=== PATIENT | female | born 1945 | race Caucasian/White ===

== ENCOUNTER 2022-02-07 12:46 | Outpatient (CLI) | payer MEDICAID ==
--- NOTE | 2022-02-07 15:42 | XRay Report ---
CHEST 2 VIEWS INDICATION: Shortness of breath. COMPARISON: None. FINDINGS: Support devices: None. Heart: Within normal limits. Lungs/Pleura: Mild patchy opacity at the mid zones right greater than left and left base. Eventration right hemidiaphragm. No significant pleural effusion. IMPRESSION: Suspect mild bilateral pneumonia with possible underlying scarring. Recommend follow-up to clearing. Signer Name: Genaro Eduardo MD Signed: 02/07/2022 3:38 PM Workstation Name: [email or web address]
--- NOTE | 2022-02-08 11:01 | Mammography Report ---
DEXA BONE DENSITY SCAN INDICATION / CLINICAL INFORMATION: [id number]. 76 years Female COMPARISON: None available. LUMBAR SPINE, L1-L4: - Bone mineral density (BMD) = 0.608 g/cm2. - T-score = -4.0 - Change (%) since most recent prior (if available): None available. LEFT HIP, NECK : - Bone mineral density (BMD) = 0.445 g/cm2. - T-score = -3.6 - Change (%) since most recent prior (if available): None available. IMPRESSION: 1. WHO Classification: Osteoporosis. Fracture Risk: High. 2. 10-Year Fracture Risk (FRAX) = Major Osteoporotic Not reported.% / Hip: Not reported.% FRAX generally not reported for patients with normal or osteoporotic BMD, in dfe-[id number]-[id number] kori ents younger than age 50, or in patients undergoing pharmacotherapy BMD Reporting Guidelines (ISCD, 2015) BMD Reporting in Postmenopausal Women and in Men Age 50 and Older - T-scores are preferred. - The WHO densitometric classification is applicable. BMD Reporting in Females Prior to Menopause and in Males Younger Than Age 50 - Z-scores, not T-scores, are preferred. This is particularly important in children. - A Z-score of -2.0 or lower is defined as below the expected range for age, and a Z-score above -2.0 is within the expected range for age. - Osteoporosis cannot be diagnosed in men under age 50 on the basis of BMD alone. - The WHO diagnostic criteria may be applied to women in the menopausal transition. http://www.iscd.org/official-positions/6120-bgej-jhlqpprw-positions-adult/ regional Signer Name: Genaro Eduardo MD Signed: 02/08/2022 10:57 AM Workstation Name: [email or web address]
== END 2022-02-07 12:47 | disposition home or self-care (01) ==
LOC: MAMMO 12:46
PROVIDERS: ATTEND Internal Medicine
DX: Z12.31 Encounter for screening mammogram for malignant neoplasm of breast (principal); R06.02 Shortness of breath; M81.0 Age-related osteoporosis without current pathological fracture
CPT/HCPCS: 71046; 77067; 77080

== ENCOUNTER 2022-02-15 12:44 | Outpatient (CLI) | payer MEDICAID ==
--- NOTE | 2022-02-15 15:44 | XRay Report ---
BILATERAL KNEES ONE VIEW INDICATION / CLINICAL INFORMATION: BILATERAL KNEE PAIN COMPARISON: None available. FINDINGS: BONES and JOINT(S): No acute fracture or subluxation. The bones are demineralized with symmetric gomez re osteoarthritis that is most notable along the medial compartments. No erosions are seen. SOFT TISSUES: No significant abnormality. ADDITIONAL FINDINGS: None. IMPRESSION: Severe osteoarthritis of the knees. Signer Name: Samir Vila MD Signed: 02/15/2022 3:39 PM Workstation Name: [id number]
== END 2022-02-15 12:45 | disposition home or self-care (01) ==
LOC: XRAY 12:44
PROVIDERS: ATTEND Orthopaedic Surgery
DX: M17.0 Bilateral primary osteoarthritis of knee (principal)
CPT/HCPCS: 73565